=== PATIENT | female | born 1975 | race Two or more races ===

== ENCOUNTER 2022-04-20 11:25 | Emergency (ER) | payer BC ==
[~2022-04-20] VITALS: Ht 157.5 cm; Wt 72.7 kg
[2022-04-20 11:44] VITALS: BP 136/80
[2022-04-20] MEDS ORDERED: PANTOPRAZOLE 40 MG TAB PO ONE ×3 (11:53→12:00)
[2022-04-20] MEDS ORDERED: ONDANSETRON ODT 4 MG TAB PO ONE ×3 (11:53→12:00)
[2022-04-20] MEDS ORDERED: OMEP-434 PO (12:13)
[2022-04-20] MEDS ORDERED: ONDA-155 PO (12:13)
== END 2022-04-20 12:25 | disposition home or self-care (01) ==
LOC: ER 11:25
DX: R11.2 Nausea with vomiting, unspecified (principal); R10.9 Unspecified abdominal pain
CPT/HCPCS: 99283; Q0162